=== PATIENT | male | born 1955 | race Two or more races ===

== ENCOUNTER → 2018-10-30 06:42 | Outpatient (CLI) | payer OTHER | END | disposition home or self-care (01) | LOC: LAB 06:42 | DX: D69.49 Other primary thrombocytopenia (principal) ==

== ENCOUNTER 2022-03-28 09:00 | Inpatient (IN) | payer OTHER ==
[2022-03-28] MEDS ORDERED: TAMSULOSIN HCL0.4 MG PO (09:51)
[2022-03-28] MEDS ORDERED: ADULT LOW DOSE81 M1 PO (09:51)
[2022-03-28] MEDS ORDERED: ATORVASTATIN CA20 MG PO (09:51)
[2022-03-28] MEDS ORDERED: BETHANECHOL CHL50 MG PO (09:51)
[2022-04-04] MEDS ORDERED: OXYC1TAB9 PO (11:12)
[2022-04-04] MEDS ORDERED: GABAPENTIN100 MG PO (11:12)
[2022-04-04] MEDS ORDERED: XARELTO10 MG PO (11:12)
[2022-04-04] MEDS ORDERED: NORFLEX100MG PO (11:12)
== END 2022-04-04 22:39 | disposition home or self-care (01) | DRG 470 ==
LOC: O/R 04-02 05:30 → SURH 04-02 07:00 → SURG 04-02 15:17
PROVIDERS: ADMIT Orthopaedic Surgery; ATTEND Orthopaedic Surgery
PROC: 0SRC0JZ Replacement of Right Knee Joint with Synthetic Substitute, Open Approach (ICD-10-PCS; principal; 2022-04-02 07:00)
DX: M17.11 Unilateral primary osteoarthritis, right knee (principal); D62 Acute posthemorrhagic anemia; M85.661 Other cyst of bone, right lower leg

== ENCOUNTER 2023-06-23 10:10 | Emergency (ER) | payer OTHER ==
[~2023-06-23] VITALS: Ht 182.9 cm; Wt 86.2 kg
[~2023-06-23 10:10] MED LIST: ADULT LOW DOSE81 M1 PO; ATORVASTATIN CA20 MG PO; BETHANECHOL CHL50 MG PO; GABAPENTIN100 MG PO; NORFLEX100MG PO; OXYC1TAB9 PO; TAMSULOSIN HCL0.4 MG PO; XARELTO10 MG PO
[2023-06-23 13:36] LABS: CALCIUM 9.2 mg/dL (8.5-10.1); CREATININE SERUM 1.12 mg/dL (0.70-1.30); GFR 65.59; POTASSIUM 4.07 mEq/L (3.5-5.1)
[2023-06-23 14:12] LABS: HEMATOCRIT 41.2 % (39.0-48.0); HEMOGLOBIN 13.5 g/dL (13-16.00); MEAN CELL VOLUME 82.2 fL (80.0-100.00); MEAN CORPUSCULAR HGB CONC 32.8 g/dl (32.0-36.0); PLATELET COUNT 146 K/uL (150-450); RED CELL DISTRIBUTION WIDTH 20.1 % (11.5-14.5)
[2023-06-23 14:14] LABS: URINE APPEARANCE Clear; URINE BACTERIA 3.7 uL (0.0-1933); URINE BILIRRUBIN Negative (NEGATIVE); URINE BLOOD Negative; URINE COLOR Yellow; URINE EPITHELIAL CELLS 0.6 uL (0.0-38.8); URINE GLUCOSE Negative (NEGATIVE); URINE LEUKOCYTE Negative; URINE NITRATE Negative; URINE PROTEIN Negative (NEGATIVE); URINE RBC 13.6 uL (0.0-20.8); URINE UROBILINOGEN 0.2 E.U./dl; URINE WBC 1.8 uL (0.0-23.2)
== END 2023-06-23 20:28 | disposition home or self-care (01) ==
LOC: ER
PROVIDERS: Emergency Medicine
DX: H66.90 Otitis media, unspecified, unspecified ear (principal)